=== PATIENT | female | born 1935 | race Caucasian/White ===

== ENCOUNTER 2017-04-22 08:07 | Emergency (ER) | payer BC ==
--- NOTE | 2017-04-22 08:24 | PDOC ---
History of Present Illness - General Chief Complaint: Injury Stated Complaint: FALL Time Seen by Provider: 04/22/17 08:15 - History of Present Illness Initial Comments: 04/22/17 08:43 The patient is an 81 year old female with a history of HTN, HLD, who presents for evaluation following a fall earlier this morning. The patient is accompanied by an unrelated tenant who assists in providing the history. History is limited due to a language barrier. The patient suffered an unwitnessed fall earlier this morning in her kitchen. The downstairs tenant heard the thump and found the patient lying on the floor of her kitchen and called EMS. The patient denies LOC or head trauma and is complaining of pain in her left hip. She otherwise denies fevers, chills, SOB, chest pain, nausea, vomiting, abdominal pain, or changes with urination or bowel movements. Past History - Past Medical History Allergies/Adverse Reactions: Allergies Allergy/AdvReac Type Severity Reaction Status Date / Time No Known Allergies Allergy Verified 04/22/17 08:26 Home Medications: Ambulatory Orders Levothyroxine 88 mcg PO DAILY 04/22/17 Lisinopril-Hctz 10-12.5 mg Tab 10 mg PO DAILY 04/22/17 Lovastatin 40 mg PO DAILY 04/22/17 Review of Systems - Review of Systems Comments:: 04/22/17 08:57 Constitutional: No fevers, chills, fatigue, malaise HEENT: No Rhinorrhea, nasal congestion, visual changes Cardiovascular: No chest pain, syncope, palpitations, lightheadedness Respiratory: No Cough, SOB, Hemoptysis, Gastrointestinal: No Abdominal pain, Nausea, Vomiting, Constipation, Diarrhea, Melena Genitourinary: No Dysuria, Frequency, Urgency, Hesitancy, Hematuria, Flank pain Musculoskeletal: Left Hip Pain. No Myalgia, arthralgia Skin: No rashes, itching, bruising, pallor Neurologic: No Headache, Dizziness, Numbness, Weakness, or Tingling Psychiatric: No Hallucinations. No SI or HI *Physical Exam - Physical Exam Comments: 04/22/17 09:01 General Appearance: Nourished. No Apparent Distress HEENT: EOMI, HAYLEY. No obvious signs of head trauma. No Pharyngeal Erythema, Tonsillar Exudate, Tonsillar Erythema Neck: No Cervical Lymphadenopathy or C-Spine Tenderness. Full ROM Respiratory/Chest: Lungs Clear, Normal Breath Sounds. No Crackles, Rales, Rhonchi, Wheezing Cardiovascular: Regular Rhythm, Regular Rate. No Murmur, Gallops, Rubs Gastrointestinal/Abdominal: Normal Bowel Sounds, Soft. No Guarding, Rebound, Tenderness Musculoskeletal: No CVA Tenderness Extremity: Left lower extremity is shortened and externally rotated with pain with log roll. Sensation to light touch and temperature intact in the extremities bilaterally. 2+ distal pulses bilaterally. Obvious deformity to the left hip with tenderness to palpation. 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 Heart Score/ECG Review #1 ECG reviewed & interpreted by me at: 09:04 (Minimal [address] depressions in Leads II, III and aVF as well as sub millimeter elevations in Leads aVL and I) General ECG Interpretation: Sinus Rhythm, Normal Rate, Normal Intervals Compared to previous ECG there are: Changes noted #2 ECG reviewed & interpreted by me at: 10:48 (Continued ST depressions in Leads II , III, aVF with ST elevations in Leads V2-V6 and minimal elevations in Leads I and aVL) General ECG Interpretation: Sinus Rhythm, Normal Rate, Normal Intervals Compared to previous ECG there are: Changes noted #3 ECG reviewed & interpreted by me at: 12:22 (Continued ST depressions in Leads II , III, aVF with minimal elevations in Leads I and aVL) General ECG Interpretation: Sinus Rhythm, Normal Rate, Normal Intervals Compared to previous ECG there are: Changes noted ED Treatment Course - LABORATORY CBC & Chemistry Diagram: 04/22/17 08:42 04/22/17 08:42 Medical Decision Making - Medical Decision Making 04/22/17 09:04 The patient is an 81 year old female with a history of HTN, HLD, who presents for evaluation following a fall earlier this morning. Differential includes but is not limited to: Fracture, Dislocation, Contusion, Intracranial process, ACS, infectious, metabolic derangement. Given the patient's physical exam, it is likely the patient has sustained a hip fracture. However we will obtain a cbc, cmp, troponin, ekg to evaluate for possible etiologies of the patient's fall as well as a plain films of the hip and chest and head and c-spine ct scans to evaluate further. We will continue to monitor and reassess. 04/22/17 10:03 CBC is unremarkable. CMP is unremarkable. Troponin is elevated to 1.71. Given the patient's EKG findings and elevated troponin, it is likely the patient is having a cardiac event which could have caused her fall. We have placed a page to Dr. Koo for cardiology consultation and will give the patient full dose aspirin after we r/o intracranial bleed with head CT. Plain films of the patient's hip demonstrate a comminuted intratrochanteric fracture of the left hip. 04/22/17 10:46 We discussed the case with Dr. Walls who agrees with admission and recommends starting the patient on a heparin drip and morphine for pain control and to monitor the patient as she is not having active chest pain. EKG's have been faxed over to his office and he will come evaluate the patient. Repeat EKG demonstrates continued ST depressions in leads II, III, aVF as well as elevations in leads V2-V6. Head CT is negative for acute pathology. 04/22/17 10:53 We discussed the case with Dr. Walls who has seen the patient's EKGs and agrees that there appears to be a lateral infarct. However he reports that she does not require transfer and cath currently given her clinical status and will opt for medical management at this time. 04/22/17 13:10 Dr. Walls has evaluated the patient and is recommending transfer for cardiac Cath at this time. He has arranged an accepted physician at [facility], Dr. Aaron Morel and transportation has been arranged. We discussed the results and the plan with the patient and her family who agreed to transfer. *DC/Admit/Observation/Transfer Diagnosis at time of Disposition: STEMI (ST elevation myocardial infarction) Qualifiers: Involved coronary artery: unspecified coronary artery Qualified Code(s): I21.3 - ST elevation (STEMI) myocardial infarction of unspecified site Hip fracture, intertrochanteric Qualifiers: Encounter type: initial encounter Fracture type: closed Fracture alignment: displaced Laterality: left Qualified Code(s): S72.142A - Displaced intertrochanteric fracture of left femur, initial encounter for closed fracture - Discharge Dispostion Disposition: TRANSFER ACUTE CARE/OTHER HOSP Condition at time of disposition: Critical - Referrals Referrals: Diallo Young MD [Primary Care Provider] - - Patient Instructions - Post Discharge Activity - Transfer to Acute Care Facility Receiving Facility: [facility] Accepting Physician:: Dr. Aaron Morel
[2017-04-22] MEDS ORDERED: morphine SULFATE 4 MG/ML VIAL IVPUSH ONE (08:25)
[2017-04-22 08:26] VITALS: TEMP 97.2; BMI 20.5
--- NOTE | 2017-04-22 08:27 | PDOC ---
Attending Attestation - HPI HPI: 04/22/17 09:02 The patient is an 81 year old with a significant PMH of HTN and hyperlipidemia who presents to the emergency department with left hip pain s/p unwitnessed fall prior to arrival. The patients neighbor reports calling EMS after hearing a thud upstairs and checking on the patient, whom she found on the floor in the kitchen. The patient denies head or neck pain. She denies LOC. She denies chest pain. Denies taking anticoagulation.The patient is a poor historian. Allergies: NKA PCP: Dr. Diallo Young - Physicial Exam PE: 04/22/17 09:02 GENERAL: Awake, alert, in no acute distress HEAD: No signs of trauma EYES: PERRLA, EOMI, sclera anicteric, conjunctiva clear ENT: Auricles normal inspection, hearing grossly normal, nares patent, oropharynx clear without exudates. Moist mucosa NECK: C-collar in place LUNGS: Breath sounds equal, clear to auscultation bilaterally. No wheezes, and no crackles HEART: Regular rate and rhythm, normal S1 and S2, no murmurs, rubs or gallops ABDOMEN: Soft, nontender, normoactive bowel sounds. No guarding, no rebound. No masses EXTREMITIES: LLE with 2+ DP pulse, short and externally rotated Otherwise: Normal range of motion, no edema. No clubbing or cyanosis. No cords, erythema, or tenderness BACK: No midline spinal tenderness in cervical/thoracic/lumbar region NEUROLOGICAL: Normal speech, cranial nerves intact, negative pronator drift, 5/ 5 strength in all b/l UE and RLE, normal sensation to light touch in all 4 extremities, normal cerebellar exam, normal reflexes and tone. Gait deferred. SKIN: Warm, Dry, normal turgor, no rashes or lesions noted. <Raudel Ron - Last Filed: 04/22/17 09:24> - Resident Resident Name: Jose Armando Carney - ED Attending Attestation I have performed the following: I have examined & evaluated the patient, The case was reviewed & discussed with the resident, I agree w/resident's findings & plan, Exceptions are as noted - Medical Decision Making 04/22/17 08:15 81-year-old female with a history of hypertension, hyperlipidemia presents to the emergency department with unwitnessed fall with left hip pain. Etiology of fall is unclear, in light of abnormal EKG, strong suspicion for cardiac event leading to fall. EKG does not currently meet criteria activate for STEMI and patient denies other symptoms, however likely has a distracting left hip injury. We'll need to rule out a traumatic head bleed prior to treatment with aspirin and will consult cardiology. 04/22/17 10:05 trop + -> 1.7. XR with L femoral neck fracture. CTH pending, if neg will give ASA and possibly heparinize. 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 Dr. Koo has been paged, awaiting call back. 04/22/17 18:[address] Walls's recommendation, pt transferred to [facility] for cath. Ortho team made aware of transfer. <Jef Mitchell - Last Filed: 04/27/17 08:06> Heart Score/ECG Review - Busy Comment: 04/22/17 10:14 Twelve-lead EKG was performed and reviewed by me. Normal sinus rhythm, rate 69. <[address] elevation in 1, aVL with reciprocal <1mm ST depression in 3 and aVF. Possible hyperacute T waves in V3 and V4. When compared to previous EKG from 2007, these changes are new. <Jef Mitchell - Last Filed: 04/27/17 08:06>
[2017-04-22 08:58] LABS: BASO % 0.6 % (0-2.0); EOS % 1.5 % (0-4.5); HEMATOCRIT 33.9 % (32.4-45.2); HEMOGLOBIN 11.6 GM/dL (10.7-15.3); LYMPH % 25.2 % (8-40); MCH 32.3 pg (25.7-33.7); MCHC 34.3 g/dl (32.0-36.0); MEAN CELL VOLUME 94.2 fl (80-96); MEAN PLT VOLUME 7.8 fl (7.5-11.1); MONO % 6.2 % (3.8-10.2); NEUT % 66.5 % (42.8-82.8); PLATELET COUNT 222 K/MM3 (134-434); RBC 3.59 M/mm3 (3.60-5.2); WHITE BLOOD COUNT 8.6 K/mm3 (4.0-10.0)
[2017-04-22] MEDS ORDERED: MORPHINE SULFATE 10 MG/1 ML *VIAL ONE (09:02)
[2017-04-22 09:19] LABS: INR 1.04 (0.82-1.09); PROTHROMBIN TIME (PATIENT) 11.8 SEC (9.98-11.88)
[2017-04-22 09:21] LABS: ACTIVATED PTT 24.2 SECONDS (26.9-34.4)
[2017-04-22 09:31] LABS: ALBUMIN 3.9 g/dl (3.4-5.0); ANION GAP 9 (8-16); BLOOD UREA NITROGEN 27 mg/dL (7-18); CALCIUM 8.8 mg/dL (8.5-10.1); CHLORIDE 102 mmol/L (98-107); CO2 28 mmol/L (21-32); GLUCOSE,RANDOM 124 mg/dL (74-106); SGPT/ALT 19 U/L (12-78); SODIUM 139 mmol/L (136-145)
[2017-04-22 09:46] LABS: ALK PHOS 71 U/L (45-117); BILIRUBIN,TOTAL 0.6 mg/dL (0.2-1.0); TOT PROT 7.2 g/dl (6.4-8.2)
[2017-04-22 09:52] LABS: POTASSIUM 4.3 mmol/L (3.5-5.1); SGOT/AST 27 U/L (15-37)
[2017-04-22] MEDS ORDERED: ASPIRIN 81 MG CHEWABLE TABLETS PO ONE (10:43)
[2017-04-22] MEDS ORDERED: HEPARIN NA (PORCINE) 5,000 UNITS/ML 1ML VIAL IVPUSH PRN ×2 (10:43)
[2017-04-22] MEDS ORDERED: HEPARIN - 25,000 UNIT in SODIUM CHLORIDE 495 ML IV SCH (10:45)
[2017-04-22] MEDS ORDERED: HEPARIN NA (PORCINE) 5,000 UNITS/ML 1ML VIAL ONE (10:53)
[2017-04-22] MEDS ORDERED: ASPIRIN 325 MG TABLET ONE (10:53)
[2017-04-22] MEDS ORDERED: HEPARIN INFUSION - 25,000 UNITS/500 ML INFUS.BAG IVPB ONE (10:54)
[2017-04-22 11:38] VITALS: BP 112/54; PULSE 72
--- NOTE | 2017-04-22 11:46 | CON.ORTH ---
Consult Reason for Consultation:: left hip fx - Alcohol/Substance Use Hx Alcohol Use: No - Smoking History Smoking history: Never smoked Have you smoked in the past 12 months: No Home Medications - Allergies Allergies/Adverse Reactions: Allergies Allergy/AdvReac Type Severity Reaction Status Date / Time No Known Allergies Allergy Verified 04/22/17 08:26 - Home Medications Home Medications: Ambulatory Orders Levothyroxine 88 mcg PO DAILY 04/22/17 Lisinopril-Hctz 10-12.5 mg Tab 10 mg PO DAILY 04/22/17 Lovastatin 40 mg PO DAILY 04/22/17 Physical Exam for Ortho Vital Signs: Vital Signs Temperature 97.2 F L 04/22/17 08:23 Pulse Rate 72 04/22/17 11:37 Respiratory Rate 17 04/22/17 11:37 Blood Pressure 112/54 04/22/17 11:37 O2 Sat by Pulse Oximetry (%) 100 04/22/17 11:37 Labs: CBC, BMP 04/22/17 08:42 04/22/17 08:42 INR, PTT INR 1.04 (0.82-1.09) 04/22/17 08:42 - Lower Extremity Hip: Yes: Left, Decreased ROM, Leg Externally Rotated, Leg Shortened, Pain, Swelling, Other (nvi) Imaging - Results X-ray: Report Reviewed, Image Reviewed Assessment/Plan 81 year old female with a history of HTN, HLD, who presents for evaluation following a fall earlier this morning. The downstairs tenant heard the thump and found the patient lying on the floor of her kitchen and called EMS. The patient denies LOC or head trauma and is complaining of pain in her left hip. She otherwise denies fevers, chills, SOB, chest pain, nausea, vomiting, abdominal pain, or changes with urination or bowel movements. Pts daughter is accompanying pt. a/p left displaced IT fx Risks and benefits were d/w daughter in detail Will need left IM gamma nail OR for tomorrow if cleared NPO after midnight surgical clearance d/w Dr. Biswas
--- NOTE | 2017-04-22 12:23 | EKG ---
Test Reason : Blood Pressure : / mmHG Vent. Rate : 069 BPM Atrial Rate : 069 BPM P-R Int : 196 ms QRS Dur : 084 ms QT Int : 378 ms P-R-T Axes : 073 044 048 degrees QTc Int : 405 ms NORMAL SINUS RHYTHM SEPTAL INFARCT , AGE UNDETERMINED ABNORMAL ECG WHEN COMPARED WITH ECG OF 02-JAN-2008 17:25, SEPTAL INFARCT IS NOW PRESENT ST NOW DEPRESSED IN INFERIOR LEADS ST ELEVATION NOW PRESENT IN LATERAL LEADS Confirmed by MOUNIKA CHEEMA MD ([id number]) on 04/22/2017 12:22:53 PM Referred By: Confirmed By:MOUNIKA CHEEMA MD
--- NOTE | 2017-04-22 12:24 | EKG ---
Test Reason : Blood Pressure : / mmHG Vent. Rate : 069 BPM Atrial Rate : 069 BPM P-R Int : 202 ms QRS Dur : 080 ms QT Int : 386 ms P-R-T Axes : 076 045 053 degrees QTc Int : 413 ms NORMAL SINUS RHYTHM LOW VOLTAGE QRS CANNOT RULE OUT ANTERIOR INFARCT (CITED ON OR BEFORE 22-APR-2017) ABNORMAL ECG WHEN COMPARED WITH ECG OF 22-APR-2017 08:22, NO SIGNIFICANT CHANGE WAS FOUND Confirmed by MOUNIKA CHEEMA MD ([id number]) on 04/22/2017 12:23:38 PM Referred By: Confirmed By:MOUNIKA CHEEMA MD
--- NOTE | 2017-04-22 12:24 | EKG ---
Test Reason : Blood Pressure : / mmHG Vent. Rate : 068 BPM Atrial Rate : 068 BPM P-R Int : 192 ms QRS Dur : 084 ms QT Int : 404 ms P-R-T Axes : 076 047 059 degrees QTc Int : 429 ms NORMAL SINUS RHYTHM NORMAL ECG WHEN COMPARED WITH ECG OF 22-APR-2017 10:24, CRITERIA FOR LATERAL INFARCT ARE NO LONGER PRESENT ST NO LONGER ELEVATED IN LATERAL LEADS Confirmed by ANETTE BELTRÁN, MOUNIKA ([id number]) on 04/22/2017 12:24:09 PM Referred By: Confirmed By:MOUNIKA CHEEMA MD
--- NOTE | 2017-04-22 12:57 | CON.CARD ---
Consult Consult Specialty:: cardiology Referred by:: Angelika Reason for Consultation:: Myocardial infarction - History of Present Illness Chief Complaint: Status post fall History of Present Illness: The patient is an 81-year-old female, we've a history of hypertension, now presenting after a fall, sustaining a hip fracture. Ruling in for an ST elevation MT. The echocardiogram showed anterior wall motion abnormality. Suggesting LAD territory. The patient received morphine for hip pains. - History Source History Provided By: Medical Record Limitations to Obtaining History: Other (under painkillers) - Past Medical History Cardio/Vascular: Yes: HTN, Other (myocardial infarction) Additional Medical History: Acute hip fracture - Alcohol/Substance Use Hx Alcohol Use: No - Smoking History Smoking history: Never smoked Have you smoked in the past 12 months: No Home Medications - Allergies Allergies/Adverse Reactions: Allergies Allergy/AdvReac Type Severity Reaction Status Date / Time No Known Allergies Allergy Verified 04/22/17 08:26 - Home Medications Home Medications: Ambulatory Orders Levothyroxine 88 mcg PO DAILY 04/22/17 Lisinopril-Hctz 10-12.5 mg Tab 10 mg PO DAILY 04/22/17 Lovastatin 40 mg PO DAILY 04/22/17 Review of Systems - Review of Systems Constitutional: reports: No Symptoms Eyes: reports: No Symptoms HENT: reports: No Symptoms Neck: reports: No Symptoms Cardiovascular: reports: No Symptoms Respiratory: reports: No Symptoms Gastrointestinal: reports: No Symptoms Genitourinary: reports: No Symptoms Breasts: reports: No Symptoms Reported Musculoskeletal: reports: Other (Hip pain) Integumentary: reports: No Symptoms Neurological: reports: No Symptoms Endocrine: reports: No Symptoms Hematology/Lymphatic: reports: No Symptoms Psychiatric: reports: No Symptoms Vital Signs: Vital Signs Temperature 97.2 F L 04/22/17 08:23 Pulse Rate 72 04/22/17 11:37 Respiratory Rate 17 04/22/17 11:37 Blood Pressure 112/54 04/22/17 11:37 O2 Sat by Pulse Oximetry (%) 100 04/22/17 11:37 Constitutional: Yes: Well Nourished, No Distress, Calm Eyes: Yes: WNL, Conjunctiva Clear HENT: Yes: WNL, Atraumatic, Normocephalic Neck: Yes: WNL, Supple, Trachea Midline Respiratory: Yes: WNL, Regular, CTA Bilaterally Gastrointestinal: Yes: WNL, Normal Bowel Sounds, Soft Renal/: Yes: WNL Cardiovascular: Yes: WNL, Regular Rate and Rhythm JVD: No Carotid Bruit: No PMI: Non-Displaced Heart Sounds: Yes: S1, S2 Murmur: Yes: Systolic Murmur, Grade 2 Musculoskeletal: Yes: Other (Hip pain) Extremities: Yes: WNL Edema: No Peripheral Pulses: 1+ Left Carotid, 1+ Right Carotid, 1+ Left Femoral, 1+ Right Femoral, 1+ Left Popliteal, 1+ Right Popliteal, 1+ Left Doralis Pedis, 1+ Right Dorsalis Pedis Neurological: Yes: WNL ...Motor Strength: WNL Psychiatric: Yes: WNL - Other Data Labs, Other Data: CBC, BMP 04/22/17 08:42 04/22/17 08:42 INR, PTT INR 1.04 (0.82-1.09) 04/22/17 08:42 Troponin, BNP 04/22/17 08:42 Troponin I 1.71 H* Troponin, BNP 04/22/17 08:42 Troponin I 1.71 H* Assessment/Plan 81-year-old female, presenting after a fall, sustaining a hip fracture, ruling in for an acute STEMI. The echocardiogram showed anterior and septal wall motion abnormalities. The ejection fraction is reduced. Start heparin and aspirin. The patient will be transferred to [facility] cardiac catheterization lab as soon as possible.
--- NOTE | 2017-04-27 12:52 | EKG ---
Test Reason : Blood Pressure : / mmHG Vent. Rate : 071 BPM Atrial Rate : 071 BPM P-R Int : 194 ms QRS Dur : 092 ms QT Int : 386 ms P-R-T Axes : 073 047 056 degrees QTc Int : 419 ms NORMAL SINUS RHYTHM LATERAL INFARCT (CITED ON OR BEFORE 22-APR-2017) ACUTE GA / STEMI ABNORMAL ECG WHEN COMPARED WITH ECG OF 22-APR-2017 08:32, QUESTIONABLE CHANGE IN INITIAL FORCES OF LATERAL LEADS ST ELEVATION NOW PRESENT IN LATERAL LEADS Confirmed by MD SHENG, JENNIFER ([id number]) on 04/27/2017 12:52:00 PM Referred By: Confirmed By:JENNIFER PATRICIO MD
== END 2017-04-22 14:33 | disposition short-term general hospital (02) ==
LOC: JER 08:07
PROC: 3E033NZ Introduction of Analgesics, Hypnotics, Sedatives into Peripheral Vein, Percutaneous Approach (ICD-10-PCS; principal; 2017-04-22)
PROC: 3E033GC Introduction of Other Therapeutic Substance into Peripheral Vein, Percutaneous Approach (ICD-10-PCS; 2017-04-22)
DX: I21.3 ST elevation (STEMI) myocardial infarction of unspecified site (principal); S72.142A Displaced intertrochanteric fracture of left femur, initial encounter for closed fracture; I10 Essential (primary) hypertension; E78.5 Hyperlipidemia, unspecified; W18.30XA Fall on same level, unspecified, initial encounter; Y93.89 Activity, other specified; Y92.000 Kitchen of unspecified non-institutional (private) residence as the place of occurrence of the external cause
CPT/HCPCS: 36415; 70450-TC; 71045-TC-FY; 72125-TC; 73523-TC-FY; 80053; 82550; 82553; 84484; 85025; 85610; 85730; 86850; 86900; 86901; 93005; 93010; 93306-TC; 99285-25; J1644